=== PATIENT | male | born 1985 | race Caucasian/White ===

== ENCOUNTER 2021-06-01 10:37 | Emergency (ER) | payer SELFPAY ==
--- OUTSIDE RECORDS SUMMARY | 2021-06-01 10:40 | XMS REPORT | Continuity of Care Document ---
:1985 Author Organization [facility] t Address [address] [place] [address] Care Team Providers Name Role Phone Unavailable Unavailable Unavailable Payers Payer Name Policy Type Policy Number Effective Date Expiration Date S ource Problems This patient has no known problems. Allergies, Adverse Reactions, Alerts Allergy Allergy Status Severity Reaction(s) Onset Inactive Treating Comm ents Source Name Type Date Date Clinician No DA Active U 2019-0 [facility] 06[facility]04 [facility] No Known DA Active U 2019-0 [facility] 06[facility]04 [facility] Medications This patient has no known medications. Procedures This patient has no known procedures. Results Test Description Test Time Test Comments Results Result Comments Source BASIC METABOLIC PANEL 2019-06-05 03:41:00 Test Item Value Reference Range Interpretation Comme nts SODIUM (test code = NA) 138 mmol/L 137-145 N POTASSIUM (test code = K) 3.3 mmol/L 3.4-5.0 L CHLORIDE (test code = CL) 105 mmol/L 98-107 N CARBON DIOXIDE (test code = 29 mmol/L 22-30 N CO2) GLUCOSE (test code = GLU) 106 mg/dL 74-106 N BLOOD UREA NITROGEN (test code 17 mg/dL 9-20 N = BUN) GLOMERULAR FILTRATION RATE 91 >60 T he estimated glomerular (test code = GFR) filtration rate is computed usingpatient ra ce, age (>18), sex, and serum creatinine. If anyof the neede d data elements are missing the Laboratory cannot compute an estimation of the glomerular filtration rate. CREATININE (test code = CREAT) 1.0 mg/dL 0.7-1.3 N CALCIUM (test code = CA) 7.9 mg/dL 8.4-10.2 L CBC W/AUTO [id number] 03:22:00 Test Item Value Reference Range Interpretation Comments WHITE BLOOD CELL (test code = 14.9 x10 3/uL 5.0-12.0 H WBC) RED BLOOD CELL (test code = 3.62 x10 6/uL 4.70-6.10 L RBC) HEMOGLOBIN (test code = HGB) 12.3 g/dL 14.0-18.0 L HEMATOCRIT (test code = HCT) 36.4 % 37.0-49.0 L MEAN CELL VOLUME (test code = 101 fL 80-94 H MCV) MEAN CELL HGB (test code = MCH) 34.0 pg 27-31 H MEAN CELL HGB CONCENTRATION 33.8 g/dL 33-37 N (test code = MCHC) RED CELL DISTRIBUTION WIDTH 12.3 % 11.5-15.5 N (test code = RDW) PLATELET COUNT (test code = 200 x10 3/uL 130-400 N PLT) MEAN PLATELET VOLUME (test code 10.2 fL 9.4-16.4 N = MPV) NEUTROPHIL % (test code = NT%) 66.9 % 43-65 H IMMATURE GRANULOCYTE % (test 0.5 % 0.0-2.0 N code = IG%) LYMPHOCYTE % (test code = LY%) 23.6 % 20.5-45.5 N MONOCYTE % (test code = MO%) 7.9 % 5.5-11.7 N EOSINOPHIL % (test code = EO%) 0.9 % 0.9-2.9 N BASOPHIL % (test code = BA%) 0.2 % 0.2-1.0 N NUCLEATED RBC % (test code = 0.0 % 0-1.0 N NRBC%) NEUTROPHIL # (test code = NT#) 9.94 x10 3/uL 2.2-4.8 H IMMATURE GRANULOCYTE # (test 0.07 x10 3/uL 0-0.03 H code = IG#) LYMPHOCYTE # (test code = LY#) 3.51 x10 3/uL 1.3-2.9 H MONOCYTE # (test code = MO#) 1.18 x10 3/uL 0.3-0.8 H EOSINOPHIL # (test code = EO#) 0.14 x10 3/uL 0.0-0.2 N BASOPHIL # (test code = BA#) 0.03 x10 3/uL 0.0-0.1 N [id number] 02:30:00 Test Item Value Reference Range Interpretation Comments GLUBED (test code = GLUBED) 121 MG/DL 74-106 H [id number] 02:04:00 Test Item Value Reference Range Interpretation Comments GLUBED (test code = GLUBED) 87 MG/DL 74-106 N [id number] 02:04:00 Test Item Value Reference Range Interpretation Comments GLUBED (test code = GLUBED) 104 MG/DL 74-106 N [id number] 20:57:00 Test Item Value Reference Range Interpretation Comments GLUBED (test code = GLUBED) 116 MG/DL 74-106 H LIPID PROFILE (CORONARY RISK)2019-06-04 07:47:00 Test Item Value Reference Range Interpretation Comments TRIGLYCERIDES (test 120 mg/dL TRIGLYCE RIDES code = TRIG) REFERENCE RANGE:Normal: < 150 mg/dLBorderline High: 150-199 mg/dLHi gh: 200-499 mg/dLVe ry High: >=500 mg/ dL CHOLESTEROL (test 145 mg/dL CHOLESTERO L REFERENCE code = CHOL) RANGE:DESIRABLE : < 200 mg/dLBORDER LINE: 200-239 mg/dLHI GH: >=240 mg/dL HDL CHOLESTEROL (test 51 mg/dL 40-59 N code = HDL) LIPOPROTEIN LDL (test 73.71 mg/dL 32-99 N code = LDLC) CORONARY RISK FACTOR 2.84 (test code = RISK) CHOL/HDL RISK MALE: 1/2 AVG 3.43 FEMALE: 1/2 AV G 3.27 AVG 4.97 AVG 4.44 2X AVG 9.55 2X AVG 7.05 3X AVG 23. 39 3X AVG 11.04~~~~~~~~~~ ~~~~~~ ~~~~~~~~~~~~~~~ ~~~~~~ ~~~~~~~~~~~~~~~ ~~~~~~ ~~National Cholesterol Edu cation (NCEP) Guidelines:~~~~ ~~~~~~ ~~~~~~~~~~~~~~~ ~~~~~~ ~~~~~~~~~~~~~~~ ~~~~~~ ~~~~~~~~ HDL Cholesterol<4 0mg/dL : HDL Cholester ol (Major risk fac tor for CHD)>60mg/d L: HDL Cholesterol (Ne gative risk factor for CHD)40-59mg/dL: Borderline Risk LDL Cholesterol<1 00mg/d L: Desirable LD L-C [id number] 0-159m g/dL: Borderlin e High Risk LDL-C [id number] 0-189m g/dL: High risk LDL-C concentration H DL-LDL Cholesterol is affected by a n umber of factors such as smoking, age an d sex.~~~~~~~~~~~ ~~~~~~ ~~~~~~~~~~~~~~~ ~~~~~~ ~~~~~~~~~~~~~~~ ~~~~~~ ~ CREATINE KINASE (CK)2019-06-04 07:47:00 Test Item Value Reference Range Interpretation Comments CREATINE KINASE (CK) 587 U/L 55-170 HH Critica l Value reported (test code = CK) Ryne Campos e:[id number] Last Name:[facility] JOSH READ BACK AND FRANCY FREEDMAN.CD, on , @ [facility]. [id number] 07:47:00 Test Item Value Reference Range Interpretation Comments MAGNESIUM (test code = MAG) 2.3 mg/dL 1.6-2.3 N CARDIAC ENZYMES [id number] 07:47:00 Test Item Value Reference Range Interpretation Comments TROPONIN-I (test 0.012 ng/mL 0.012-0.033 N code = TROPI) Please be advised of the updated reference ranges for the new Chemistry instrumentation . TROS TROPONIN I CRITERIANORM AL PATIENT W/O CIRCULATING TNI: 0.012-0.033 ng/mLCIRCULATIN G TNI PRESENT: 0.034- 0.119 ng/mL(MAY BE AT RISK OF AMI)AMI DIAGNOS TIC CUTOFF: >/= 0.120 ng/mL~~~~~~~~~~ ~~~~~~~~~~~ ~~~~~~~~~~~~~~~ ~~~~~~~~~~~ ~~~~~~~~~~~~The use of serial sampling and testing protoco l is arecommended pr actice.An elevated tropon in level alone is often not sufficient obando iagnosis of myocardial infa rction. Troponin result s obtained by different as says may vary.Evaluation of the extent of myoca rdial damage based on increase of troponin would be valid only if similar methodology is used.~~~~~~~~~~ ~~~~~~~~~~~ ~~~~~~~~~~~~~~~ ~~~~~~~~~~~ ~~~~~~~~~~~~ DRUGS OF ABUSE [id number] 07:35:00 Test Item Value Reference Range Interpretation Comments TRICYCLICS QL SQN (test NEGATIVE NEG TEST PERFORMED code = TRIUR) MANUALLY USING [employer] RAPIDTEST TCA.C UTOFF >/= 1000 NG/ML A Positive drug s creen result provides only a "PreliminaryPos itive" test result.If a confirmation of positive result is necessary, a morespecific confirmatory te st must be ordered by the physician. Drug screens are per formed for medical (i. e. treatment)purpo ses only. Unconfirm ed screening resul ts must not beused for non-medical pur poses (e.g employment testing). UR COCAINE (test code = NEGATIVE NEGATIVE CUTO FF >/= 300 NG/ML COCAU) UR THC CANABINOIDS QL NEGATIVE NEGATIVE CUTOFF >/= 20 NG/ML SQN (test code = CANU) UR AMPHETAMINE QL SQN POSITIVE NEGATIVE A CUTOFF >/= 500 NG/ML (test code = AMPHU) UR BARBITURATE QUAL NEGATIVE NEGATIVE CUTOFF >/= 200 NG/ML (test code = BARBQLU) UR BENZODIAZEPINE (test NEGATIVE NEGATIVE CUTO FF >/= 200 NG/ML code = BENZU) UR OPIATES QUAL (test NEGATIVE NEGATIVE CUTOFF >/= 2000 NG/ML code = OPIAQLU) UR PHENCYCLIDINE (PCP) NEGATIVE NEGATIVE CUTOF F >/= 25 NG/ML (test code = PHENCU) DRUGS OF ABUSE [id number] 07:19:00 Test Item Value Reference Range Interpretation Comments TRICYCLICS QL SQN (test NEGATIVE NEG TEST PERFORMED code = TRIUR) MANUALLY USING [employer] RAPIDTEST TCA.C UTOFF >/= 1000 NG/ML A Positive drug s creen result provides only a "PreliminaryPos itive" test result.If a confirmation of positive result is necessary, a morespecific confirmatory te st must be ordered by the physician. Drug screens are per formed for medical (i. e. treatment)purpo ses only. Unconfirm ed screening resul ts must not beused for non-medical pur poses (e.g employment testing). UR COCAINE (test code = NEGATIVE COCAU) UR THC CANABINOIDS QL NEGATIVE SQN (test code = CANU) UR AMPHETAMINE QL SQN NEGATIVE (test code = AMPHU) UR BARBITURATE QUAL NEGATIVE (test code = BARBQLU) UR BENZODIAZEPINE (test NEGATIVE code = BENZU) UR OPIATES QUAL (test NEGATIVE code = OPIAQLU) UR PHENCYCLIDINE (PCP) NEGATIVE (test code = PHENCU) BASIC METABOLIC [id number] 05:12:00 Test Item Value Reference Range Interpretation Comments SODIUM (test code = 144 mmol/L 137-145 N NA) POTASSIUM (test code 4.5 mmol/L 3.4-5.0 N = K) CHLORIDE (test code = 109 mmol/L 98-107 H CL) CARBON DIOXIDE (test 25 mmol/L 22-30 N code = CO2) GLUCOSE (test code = 109 mg/dL 74-106 H GLU) BLOOD UREA NITROGEN 18 mg/dL 9-20 N (test code = BUN) GLOMERULAR FILTRATION 62 >60 The es timated RATE (test code = glomerular filtration GFR) rate is compute d usingpatient ra ce, age (>18), sex, and serum creatinine. If anyof the needed data elements are mi ssing the Laboratory cannot compute an kenisha mation of the glomerul ar filtration rate . CREATININE (test code 1.4 mg/dL 0.7-1.3 H = CREAT) CALCIUM (test code = 9.2 mg/dL 8.4-10.2 N CA) LIVER FUNCTION [id number] 05:12:00 Test Item Value Reference Range Interpretation Comments TOTAL PROTEIN (test 7.9 g/dL 6.3-8.2 N code = PROT) ALBUMIN (test code = 4.7 g/dL 3.5-5.0 N ALB) BILIRUBIN TOTAL (test 1.8 mg/dL 0.2-1.3 H code = BILT) BILIRUBIN CONJUGATED 0 mg/dL 0-0.3 N ~~~~~~~ ~~~~~~~~~~~~~~ (test code = BILCON) ~~~~~~~ ~~~~~~~~~~~~~~ ~~~~~~~~~~~~~~~ ~~~CON JUGATED BILIRUB IN IS THE REPLACEMENT ASSAY FOR DIRECTBILIRUBIN .~~~~~ ~~~~~~~~~~~~~~~ ~~~~~~ ~~~~~~~~~~~~~~~ ~~~~~~ ~~~~~~~~~~~~~ BILIRUBIN UNCONJUGATED 1.6 mg/dL 0-1.1 H (test code = BILUNC) SGOT/AST (test code = 42 U/L 15-46 N AST) SGPT/ALT (test code = 48 U/L 13-69 N ALT) ALKALINE PHOSPHATASE 80 U/L 38-126 N (test code = ALKP) NT PRO-BRAIN NATRIURETIC [id number] 05:12:00 Test Item Value Reference Range Interpretation Comments NT PRO-BRAIN 47.4 pg/mL 0-299 N ~~~~~~~~~~~~~~~ ~~~~~~~~ NATRIURETIC PEPTI ~~~~~~~~~~ ~~~~~~~~~~~~~ (test code = PROBNP) ~~~~~~~ ~~~~~~~NT PRO-BNP IS THE REPLACEMENT ASS AY FOR BNP.~~~~~~~~~~~ ~~~~~~~~ ~~~~~~~~~~~~~~~ ~~~~~~~~ ~~~~~~~~~~~~~~~ ~~~RULE- IN CUT POINTS F OR PATIENTS WITH S USPECTED ACUTECONGESTIVE HEART FAILURE:<50 yrs old: >450 pg/mL50-75 yrs old: >900 pg/mL >75 yrs old: >1800 pg/mL A positive bias m ay occur on patients [place] BIOTINsupplemen ts. BASIC METABOLIC [id number] 05:04:00 Test Item Value Reference Range Interpretation Comments SODIUM (test code = 144 mmol/L 137-145 N NA) POTASSIUM (test code 4.5 mmol/L 3.4-5.0 N = K) CHLORIDE (test code = 109 mmol/L 98-107 H CL) CARBON DIOXIDE (test 25 mmol/L 22-30 N code = CO2) GLUCOSE (test code = 109 mg/dL 74-106 H GLU) BLOOD UREA NITROGEN 18 mg/dL 9-20 N (test code = BUN) GLOMERULAR FILTRATION 62 >60 The es timated RATE (test code = glomerular filtration GFR) rate is compute d usingpatient ra ce, age (>18), sex, and serum creatinine. If anyof the needed data elements are mi ssing the Laboratory cannot compute an kenisha mation of the glomerul ar filtration rate . CREATININE (test code 1.4 mg/dL 0.7-1.3 H = CREAT) CALCIUM (test code = 9.2 mg/dL 8.4-10.2 N CA) LIVER FUNCTION [id number] 05:04:00 Test Item Value Reference Range Interpretation Comments TOTAL PROTEIN (test 7.9 g/dL 6.3-8.2 N code = PROT) ALBUMIN (test code = 4.7 g/dL 3.5-5.0 N ALB) BILIRUBIN TOTAL (test 1.8 mg/dL 0.2-1.3 H code = BILT) BILIRUBIN CONJUGATED 0 mg/dL 0-0.3 N ~~~~~~~ ~~~~~~~~~~~~~~ (test code = BILCON) ~~~~~~~ ~~~~~~~~~~~~~~ ~~~~~~~~~~~~~~~ ~~~CON JUGATED BILIRUB IN IS THE REPLACEMENT ASSAY FOR DIRECTBILIRUBIN .~~~~~ ~~~~~~~~~~~~~~~ ~~~~~~ ~~~~~~~~~~~~~~~ ~~~~~~ ~~~~~~~~~~~~~ BILIRUBIN UNCONJUGATED 1.6 mg/dL 0-1.1 H (test code = BILUNC) SGOT/AST (test code = 42 U/L 15-46 N AST) SGPT/ALT (test code = 48 U/L 13-69 N ALT) ALKALINE PHOSPHATASE 80 U/L 38-126 N (test code = ALKP) NT PRO-BRAIN NATRIURETIC [id number] 05:04:00 Test Item Value Reference Range Interpretation Comments NT PRO-BRAIN NATRIURETIC PEPTI (test pg/mL 0-299 code = PROBNP) PROTHROMBIN [id number] 04:58:00 Test Item Value Reference Range Interpretation Comments PROTHROMBIN TIME 12.7 SECONDS 9.2-12.1 H PATIENT (test code = PTP) INTERNATIONAL NORMAL 1.2 The INR is to be used RATIO (test code = only for monitoring INR) ORAL ANTICOAGULANTTH ERAPY. Indicati on INR Value1. Prophylaxis/homero atment of: Venous Thrombosis, Pul monary Embolism 2.0 - 3.02. Preventi on of systemic emboli sm from: Tiss ue heart valves 2.0 - 3.0 Acute myocardial infa rction (to present systemic emboli sm)* 2.0 - 3.0 Valvular heart disease 2.0 - 3.0 Atrial fibrillation 2.0 - 3.03. Geological Drafter al prosthetic valv es (high risk) 2.5 - 3.5 * If oral anticoagulant t herapy is elected to preventrecurren t myocardial infa rction, an INR of 2.5-3 .5 isrecommended, consistent with Food and Drug Administrationr ecommen dations. THROMBOPLASTIN TIME [id number] 04:58:00 Test Item Value Reference Range Interpretation Comments THROMBOPLASTIN TIME 28.6 SECONDS 23.4-37.0 N Therap eutic Range PARTIAL (test code = for Hep josé manuel PTT) EFFECTIVE Heparin IU/mL aPT T Seconds0.3 64.30.7 88.8 UA RFLX MICR CULT IF [id number] 04:56:00 Test Item Value Reference Range Interpretation Comments UA COLOR (test code = Rina Yellow A COLU) UA APPEARANCE (test Cloudy Clear A code = APPU) UA GLUCOSE DIPSTICK Negative Negative (test code = DGLUU) UA BILIRUBIN DIPSTICK Negative Negative (test code = BILU) UA KETONE DIPSTICK Trace mg/dL Negative A (test code = KETU) UA SPECIFIC GRAVITY 1.030 <1.030 (test code = SGU) UA BLOOD DIPSTICK Negative Negative (test code = ARIEL) UA PH DIPSTICK (test 5.0 5.0-8.0 code = SHARMIN) UA PROTEIN DIPSTICK 100 (2+) mg/dL Negative A (test code = PROU) UA UROBILINOGEN Negative mg/dL Negative DIPSTICK (test code = URO) UA NITRITE DIPSTICK Negative Negative (test code = EUSEBIO) UA LEUKOCYTE ESTERASE NEGATIVE Negative DIPSTICK (test code = LEUU) UA WBC (test code = 0-3 /HPF <4-5 <10 WBC/ HPF = WBCUR) PYURIA ABSENT URINE CULTURE NOT INDICATED UA RBC (test code = 3-5 /HPF <4-5 RBCU) UA BACTERIA (test NONE SEEN /HPF None-Rare code = BACU) UA SQUAMOUS CELLS 0-5 (RARE) /HPF 0-5 (RARE) (test code = SQU) UA HYALINE CAST (test 21-30 /LPF <4-5 A code = HYALU) UA MUCUS (test code = 4+ /LPF <Rare A MUCU) SOURCE OF URINE: CLEAN CATCHIndication for culture: Flank PainTROPONIN I [id number] 04:53:00 Test Item Value Reference Range Interpretation Comments TROPONIN I RAPID 0.00 ng/mL 0.00-0.079 N ISTAT (test code = TROPONIN I TROPIRAP) CRITERIA0.00-0. 08 ng/mL - Negative>0.08 n g/mL - Positive The us e of serial sampling and te sting protocol is are commended practice.An charles vated troponin level alone is often not suffi cient fordiagnosis of myocardial infarction. Tro ponin results obtaine d by different assay s may vary.Evaluation of the extent of myoca rdial damage based on increase of troponin would be valid only if similar methodology is used. CBC W/AUTO [id number] 04:50:00 Test Item Value Reference Range Interpretation Comments WHITE BLOOD CELL (test code = 18.7 x10 3/uL 5.0-12.0 H WBC) RED BLOOD CELL (test code = 4.51 x10 6/uL 4.70-6.10 L RBC) HEMOGLOBIN (test code = HGB) 14.9 g/dL 14.0-18.0 N HEMATOCRIT (test code = HCT) 42.9 % 37.0-49.0 N MEAN CELL VOLUME (test code = 95 fL 80-94 H MCV) MEAN CELL HGB (test code = 33.0 pg 27-31 H MCH) MEAN CELL HGB CONCENTRATION 34.7 g/dL 33-37 N (test code = MCHC) RED CELL DISTRIBUTION WIDTH 12.1 % 11.5-15.5 N (test code = RDW) PLATELET COUNT (test code = 245 x10 3/uL 130-400 N PLT) MEAN PLATELET VOLUME (test 9.0 fL 9.4-16.4 L code = MPV) NEUTROPHIL % (test code = NT%) 85.0 % 43-65 H IMMATURE GRANULOCYTE % (test 0.7 % 0.0-2.0 N code = IG%) LYMPHOCYTE % (test code = LY%) 7.8 % 20.5-45.5 L MONOCYTE % (test code = MO%) 6.3 % 5.5-11.7 N EOSINOPHIL % (test code = EO%) 0.0 % 0.9-2.9 L BASOPHIL % (test code = BA%) 0.2 % 0.2-1.0 N NUCLEATED RBC % (test code = 0.0 % 0-1.0 N NRBC%) NEUTROPHIL # (test code = NT#) 15.87 x10 3/uL 2.2-4.8 H IMMATURE GRANULOCYTE # (test 0.14 x10 3/uL 0-0.03 H code = IG#) LYMPHOCYTE # (test code = LY#) 1.46 x10 3/uL 1.3-2.9 N MONOCYTE # (test code = MO#) 1.17 x10 3/uL 0.3-0.8 H EOSINOPHIL # (test code = EO#) 0.00 x10 3/uL 0.0-0.2 N BASOPHIL # (test code = BA#) 0.03 x10 3/uL 0.0-0.1 N - XR CHEST 1 [id number] 04:46:00 [place]: St: REG Name: [facility] : 1985 Age/S: 34/M [address] Unit#: [id number] Loc: [place] [address] Phys: Cameron Segundo MD Acct: [id number] Dis Date: Status: REG ER PHONE #: [phone] Exam Date: 06/04/2019 043 FAX #: [phone] Reason: INTUBATED EXAMS: CPT CODE: [id number] XR CHEST 1 V [id number] EXAM: - XR CHEST 1 V HISTORY: Intubated. COMPARISON: None available time of interpretation. FINDINGS: Single AP view of the chest is provided. Endotracheal tube is 2.2 cm above the kelvin. Nasogastric tube is projecting over the proximal stomach. Heart size and vascularity are within normal limits. The lungs are clear of focal consolidation. No effusion, pneumothorax, or acute osseous abnormality. IMPRESSION: Endotracheal tube is in place. Nasogastric tube is projecting over the body of the stomach. Electronically Signedby Gerardo Srivastava MD on 06/04/2019 at 0446 Reported and signed by: Gerardo Srivastava MD CC: Technologist: Carlee Suarez Trnscrd Date/Time/By: 06/04/2019 (0446) : By: [email or web address] PAGE 1 Signed Report [place]: St: REG Name: [facility]AK [facility]OUGH[facility] : 1985 Age/S: 34/M [address] Unit #: [id number] Loc: [place] [address] Phys: Cameron Segundo MD Acct: [id number] Dis Date: Status: REG ER PHONE #: [phone] Exam Date: 06/04/2019 0431 FAX #: [phone] Reason: INTUBATED EXAMS: CPT CODE: [id number] XR CHEST 1 V [id number] <Continued> Orig Print D/T: S: 06/04/2019 (0449) PAGE 2 Signed ReportLACTIC ACID [id number] 04:45:00 Test Item Value Reference Range Interpretation Comments LACTIC ACID POC (test code = 0.95 mmol/L 0.7-2.0 N LACTP) POC ARTERIAL BLOOD [id number] 04:40:00 Test Item Value Reference Range Interpretation Comments POC ARTERIAL BLOOD GAS PH (test 7.329 7.35-7.45 L code = POCPHA) POC ARTERIAL BLOOD GAS PCO2 (test 47.8 mmHg 35-45 H code = OMFTCH1O) POC ARTERIAL BLOOD GAS PO2 (test 128 mmHg 80-90 H code = UXEDG2C) POC HCO3 ARTERIAL (test code = 25.1 mmol/L 22.0-24.0 H [id number]) POC BASE EXCESS (test code = -1 mmol/L -2.0-2.0 N POCBEA) POC O2 SATURATION (test code = 99 % 95-98 H POCO2S) ARTERIAL FIO2 (test code = FIO2A) 100 % ABG DELIVERY (test code = BIN) Vent ABG VENT MODE (test code = MODEA) AC Volume ABG PATIENT RESP RATE (test code 15 /MIN 12-20 N = RRPATA) ABG PEEP (test code = PEEP) 5 cmH2O ABG SITE (test code = SITEA) L Rad ALLENS TEST (test code = ALLENS) N/A
[2021-06-01] MEDS ORDERED: NA CHLORIDE 0.9% 1,000 ML ONE (12:24)
[2021-06-01] MEDS ORDERED: TETANUS & DIPHTHERIA TOX,ADULT 0.5 ML VIAL ONE (12:24)
[2021-06-01] MEDS ORDERED: HYDROCODONE/APAP 10/325 TAB ONE (12:24)
[2021-06-01] MEDS ORDERED: TETRACAINE HCL 0.5% 4ML OPTH ONE (12:24)
[2021-06-01] MEDS ORDERED: TOBRAMYCIN SULF 0.3% OPTH OINT ONE (12:25)
[2021-06-01] MEDS ORDERED: FLUORESCEIN SODIUM 1 MG/WRAP ONE (12:25)
[2021-06-01 12:41] LABS: Absolute Lymphocytes (CBC) 3.2 K/uL (0.7-4.9); Basophils % 0.5 % (0-1.3); Hematocrit 41.1 % (39.6-49.0); Lymphocytes % 19.4 % (15.3-44.8); MPV 7.3 fL (7.6-11.3); RBC Red Blood Cell Count 4.18 M/uL (4.33-5.43)
--- NOTE | 2021-06-01 13:07 | RAD REPORT ---
EXAM DESCRIPTION: CT - Orbits W/Cont - 06/01/2021 12:43 pm CLINICAL HISTORY: Trauma to the right periorbital region, pain COMPARISON: None. TECHNIQUE: Axial 2 millimeter thick images were obtained through the orbits following nonionic IV co ntrast administration. Sagittal and coronal reformatted images generated and reviewed. All CT scans are performed using dose optimization technique as appropriate and may include automated exposure control or mA/KV adjustment according to patient size. FINDINGS: No abnormality of either globe identifiable. Optic nerves and extraocular muscles are norm al in appearance. No abnormality of the orbital fat. There are no post septal orbital injury is evide nt. Soft tissues are prominent overlying the inferior aspect of the orbit right infraorbital region. No orbital wall fracture confirmed. Patchy mucosal thickening seen in the ethmoid air cells. There is right deviation of the nasal septum. Paranasal sinuses and mastoid air cells are clear. No foreign body identified. IMPRESSION: Soft tissue swelling or contusion changes right periorbital region. No foreign body seen . No globe or postseptal orbital abnormality identifiable.
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
--- NOTE | 2021-06-01 13:08 | EDPHYS ---
Physician Documentation [facility] Name: Zac Rainey Age: 36 yrs Sex: Male : 1985 Arrival Date: 06/01/2021 Time: 10:38 Bed 11 Private MD: ED Physician Byron Giron HPI: 06/01 11:46 This 36 yrs old Male presents to ER via Unassigned with complaints of Eye jeffrey Injury. 11:46 The patient sustained an abrasion, contusion, to the right eye. Onset: The jeffrey symptoms/episode began/occurred this morning. Duration: the symptoms are continuous. Aggravated by blinking, closing eye, light, opening eye, pressure. Associated signs and symptoms: Pertinent positives: dizziness, headache. Patient does not utilize any form of vision correction. Severity of symptoms: At their worst the symptoms were mild in the emergency department the symptoms are unchanged. The patient has not experienced similar symptoms in the past. Historical: - Allergies: 12:25 No Known Allergies; iw - Family history:: not pertinent. ROS: 11:46 Constitutional: Negative for fever, chills, and weight loss, ENT: Negative for injury, jeffrey pain, and discharge, Neck: Negative for injury, pain, and swelling, Cardiovascular: Negative for chest pain, palpitations, and edema, Respiratory: Negative for shortness of breath, cough, wheezing, and pleuritic chest pain, Abdomen/GI: Negative for abdominal pain, nausea, vomiting, diarrhea, and constipation, Back: Negative for injury and pain, : Negative for injury, bleeding, discharge, and swelling, MS/Extremity: Negative for injury and deformity, Skin: Negative for injury, rash, and discoloration, Neuro: Negative for headache, weakness, numbness, tingling, and seizure, Psych: Negative for depression, anxiety, suicide ideation, homicidal ideation, and hallucinations, Allergy/Immunology: Negative for hives, rash, and allergies, Endocrine: Negative for neck swelling, polydipsia, polyuria, polyphagia, and marked weight changes, Hematologic/Lymphatic: Negative for swollen nodes, abnormal bleeding, and unusual bruising. 11:46 Eyes: Positive for blurry vision, matting, pain, redness, of the inner aspect of conjuctiva of right eye and right inner canthus. Exam: 11:46 Constitutional: This is a well developed, well nourished patient who is awake, alert, jeffrey and in no acute distress. Head/Face: Normocephalic, atraumatic. ENT: Nares patent. No nasal discharge, no septal abnormalities noted. Tympanic membranes are normal and external auditory canals are clear. Oropharynx with no redness, swelling, or masses, exudates, or evidence of obstruction, uvula midline. Mucous membranes moist. Neck: Trachea midline, no thyromegaly or masses palpated, and no cervical lymphadenopathy. Supple, full range of motion without nuchal rigidity, or vertebral point tenderness. No Meningismus. Chest/axilla: Normal chest wall appearance and motion. Nontender with no deformity. No lesions are appreciated. Cardiovascular: Regular rate and rhythm with a normal S1 and S2. No gallops, murmurs, or rubs. Normal PMI, no JVD. No pulse deficits. Respiratory: Lungs have equal breath sounds bilaterally, clear to auscultation and percussion. No rales, rhonchi or wheezes noted. No increased work of breathing, no retractions or nasal flaring. Abdomen/GI: Soft, non-tender, with normal bowel sounds. No distension or tympany. No guarding or rebound. No evidence of tenderness throughout. Back: No spinal tenderness. No costovertebral tenderness. Full range of motion. Male : Normal genitalia with no discharge or lesions. Skin: Warm, dry with normal turgor. Normal color with no rashes, no lesions, and no evidence of cellulitis. MS/ Extremity: Pulses equal, no cyanosis. Neurovascular intact. Full, normal range of motion. Neuro: Awake and alert, GCS 15, oriented to person, place, time, and situation. Cranial nerves II-XII grossly intact. Motor strength 5/5 in all extremities. Sensory grossly intact. Cerebellar exam normal. Normal gait. Psych: Awake, alert, with orientation to person, place and time. Behavior, mood, and affect are within normal limits. 11:46 Eyes: Periorbital structures: erythema, swelling, that is mild, Pupils: equal, round, and reactive to light and accomodation, Extraocular movements: painful, no gross restriction eom. Vital Signs: 11:14 BP 131 / 87; Pulse 102; Resp 18; Temp 98.6; Pulse Ox 95% on R/A; Weight 113.4 kg; Height 5 ft. 7 in. (170.18 cm); Pain 10/10; 11:14 Body Mass Index 39.16 (113.40 kg, 170.18 cm) MDM: 11:02 Patient medically screened. [facility] 11:50 Differential diagnosis: Corneal abrasion of Acute iritis of right eye. Data reviewed: [facility] vital signs, nurses notes, radiologic studies, CT scan. Data interpreted: monitoring tech: not applicable for this patient encounter. rate is 102 beats/min, rhythm is regular, Pulse oximetry: on room air is 95 %. Counseling: I had a detailed discussion with the patient and/or guardian regarding: the historical points, exam findings, and any diagnostic results supporting the discharge/admit diagnosis, lab results, radiology results. 06/01 11:44 Order name: CBC with Diff; Complete Time: 13:07 [facility] 06/01 11:44 Order name: BMP [facility] 06/01 12:15 Order name: Orbits W/Cont EDMS 06/01 11:42 Order name: Eye Tray; Complete Time: 13:33 [facility] 06/01 11:42 Order name: Fluoresene Opth strip; Complete Time: 13:33 [facility] Administered Medications: 12:29 Drug: Tetracaine Drops 0.5 % 1 drops Route: Ophthalmic; Site: right eye; iw 12:29 Drug: Fluorescein Strip 1 strip Route: Ophthalmic; Site: right eye; iw 12:29 Drug: [place] (HYDROcodone-acetaminophen) 10 mg-325 mg 1 tabs Route: PO; iw 12:29 Drug: Tobrex (tobramycin) Ointment 0.3 % 1 application Route: Ophthalmic; Site: right iw eye; 12:50 Drug: NS 0.9% 1000 ml Route: IV; Rate: 1 bolus; Site: left antecubital; iw 13:50 Follow up: IV Status: Completed infusion iw 13:10 Drug: Dilaudid (HYDROmorphone) 1 mg Route: IVP; Site: left antecubital; iw 13:30 Follow up: Response: No adverse reaction iw 13:10 Drug: Zofran (Ondansetron) 4 mg Route: IVP; Site: left antecubital; iw 13:32 Drug: Ancef (cefazolin) 1 grams Route: IVPB; Site: left antecubital; iw 13:40 Follow up: IV Status: Completed infusion iw 13:33 Drug: Tetanus-Diphtheria Toxoid Adult 0.5 ml {[employer] Agent: [employer]. Exp: iw 01/30/2022. Lot #: [id number]. } Route: IM; Site: right deltoid; Disposition Summary: 06/01/21 13:08 Discharge Ordered Location: Home jeffrey Problem: new jeffrey Symptoms: have improved jeffrey Condition: Stable jeffrey Diagnosis - Ocular pain, left eye - blunt trauma jeffrey Followup: jeffrey - With: - When: Upon discharge from the Emergency Department - Reason: Recheck today's complaints, Continuance of care, Re-evaluation by your physician Discharge Instructions: - Discharge Summary Sheet jeffrey - Eye Contusion jeffrey - Eye Patch, Adult jeffrey - Eye Contusion, [id number] jeffrey Forms: - Medication Reconciliation Form jeffrey - Thank You Letter jeffrey - Antibiotic Education jeffrey - Prescription Opioid Use [facility] Prescriptions: - Tobrex - place 1 inch ribbon by OPHTHALMIC route 4 times per day; 3.5 gram; Refills: 0, [facility] Product Selection Permitted - acetaminophen-codeine 300-15 mg Oral tablet - take 2 tablet by ORAL route every 4-6 hours; 15 tablet; Refills: 0, Product [facility] Selection Permitted - Cephalexin 500 mg Oral Capsule - take 1 capsule by ORAL route every 6 hours for 7 days; 28 capsule; Refills: 0, [facility] Product Selection Permitted Signatures: Dispatcher [employer] Byron Cunningham MD MD cha Williams, Irene RN RN iw Corrections: (The following items were deleted from the chart) 12:15 11:44 Facial Bones W/ Con \T\ [id number] ordered. ELLI CALLOWAY
[2021-06-01] MEDS ORDERED: HYDROMORPHONE HCL 1 MG/ML INJ ONE (13:22)
[2021-06-01] MEDS ORDERED: ONDANSETRON 4 MG/2 ML VIAL ONE (13:22)
[2021-06-01 13:39] VITALS: BP 131/87; TEMP 98.6; O2SAT 95
[2021-06-01 13:46] LABS: BUN Blood Urea Nitrogen 15 mg/dL (7-18); Bicarbonate 25 mmol/L (21-32); Glucose Level 92 mg/dL (74-106); Sodium Level 138 mmol/L (136-145)
[2021-06-01 13:47] LABS: Potassium 4.3 mmol/L (3.5-5.1)
[2021-06-01] MEDS ORDERED: CEFAZOLIN/SWI 1gm 1 GM/10 ML SYR ONE (13:48)
== END 2021-06-01 13:33 | disposition home or self-care (01) ==
LOC: ER 10:37
DX: S00.211A Abrasion of right eyelid and periocular area, initial encounter (principal); X58.XXXA Exposure to other specified factors, initial encounter; Z23 Encounter for immunization
CPT/HCPCS: 36415; 70481; 80048; 85025; 90471; 90714; 96361; 96374; 96375; 99284; J0690; J1170; J2405; J7030; Q9967